=== PATIENT | female | born 1965 | race African-American/Black ===

== ENCOUNTER → 2019-05-23 10:41 | Outpatient (CLI) | payer MEDICARE, MEDICAID, OTHER, SELFPAY ==
--- NOTE | 2019-05-23 10:49 | DI.CT.S_ITS ---
PROCEDURE: CT ABDOMEN WO/W CON INDICATIONS: Disorder of kidney and ureter, unspecified TECHNIQUE: Optional 5 mm thick noncontrast images acquired from the diaphragm to the iliac crests. After the administration of intravenous contrast, 5 mm thick images again acquired from the diaphragm to the iliac crests in the arterial and urographic phases. 5 mm thick coronal and sagittal reformats were then acquired. For radiation dose reduction, the following was used: automated exposure control, adjustment of mA and/or kV according to patient size. COMPARISON: Outside Facility, RG, CT ABDOMEN/PELVIS W/WO CONTRAST, 01/11/2019, 8:37. Outside Facility, RG, CT ABDOMEN/PELVIS WITH CONTRAST, 12/09/2018, 8:40. FINDINGS: Image quality: Excellent. Lung bases: Lung bases are clear. Heart size is normal. Genitourinary: The kidneys are atrophied bilaterally. There is a nonobstructing 3 mm lower pole left intrarenal calcification. There is a punctate calcification within the posterior right upper pole renal parenchyma. Multiple small cortical and medullary cysts are present bilaterally, the largest in the right lower pole measures about 1.7 cm. The largest simple cyst arises from the anterolateral left upper pole measuring 2.6 cm. There is an exophytic rounded complex left upper pole renal mass measuring 6.8 x 6.7 x 6.5 cm, stable size compared to the most remote prior study. Precontrast Hounsfield units are 26. Arterial phase enhanced Hounsfield units are 33 and delayed phase Hounsfield units are 35. There is trace defined peripheral and thin septal calcification internally. There is a small coarse internal calcification. Other solid organs: The scattered splenic and hepatic calcifications. Small, dependently layering calcified gallstones. Coarse calcifications in the expected location of the cystic duct, but no gallbladder distention or wall thickening. No adrenal nodules. Normal pancreas. Peritoneum and bowel: Unenhanced bowel loops are normal in wall thickness and caliber. Small descending colon diverticula are present. No free fluid or air. Nodes and vessels: No retroperitoneal or mesenteric adenopathy by size criteria. Aorta and inferior vena cava are normal in caliber. Bones: No suspicious bony lesions. No vertebral body compression fractures. Miscellaneous: No ventral hernias. IMPRESSION: 1. 6.8 cm exophytic left upper pole mildly complex cystic lesion without significant enhancement and occasional thin, linear septal calcifications. 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 This has been stable for 6 months and now annual followup for 5 years is recommended. 2. 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 3. Nonobstructing left lower pole intrarenal calcification. 4. Cholelithiasis. 5. Hepatic and splenic granulomas. Dictated by: Stefania Goncalves M.D. on 06/02/2019 at 18:09 Approved by: Stefania Goncalves M.D. on 06/02/2019 at 18:28
== END ==
PROVIDERS: PCP Family Medicine; Visit Provider Urology
DX: N28.9 Disorder of kidney and ureter, unspecified (principal); N20.0 Calculus of kidney; N28.1 Cyst of kidney, acquired; K57.30 Diverticulosis of large intestine without perforation or abscess without bleeding; K80.20 Calculus of gallbladder without cholecystitis without obstruction; N26.1 Atrophy of kidney (terminal); D73.89 Other diseases of spleen; K76.9 Liver disease, unspecified; Z87.442 Personal history of urinary calculi
CPT/HCPCS: 74170; Q9967

== ENCOUNTER → 2019-09-19 09:35 | Outpatient (CLI) | payer MEDICARE, MEDICAID, OTHER, SELFPAY ==
--- NOTE | 2019-09-19 09:44 | DI.CT.S_ITS ---
PROCEDURE: CT ABDOMEN WO/W CON INDICATIONS: DISORDER OF KIDNEY AND URETER TECHNIQUE: Optional 5 mm thick noncontrast images acquired from the diaphragm to the iliac crests. After the administration of intravenous contrast, 5 mm thick images again acquired from the diaphragm to the iliac crests in the arterial and urographic phases. 5 mm thick coronal and sagittal reformats were then acquired. For radiation dose reduction, the following was used: automated exposure control, adjustment of mA and/or kV according to patient size. COMPARISON: [facility], CT, CT ABDOMEN WO/W CON, 05/23/2019, 11:03. FINDINGS: Image quality: Excellent. Lung bases: Lung bases are clear. Heart size is normal. Genitourinary: Bilateral kidneys are atrophic in size. Tiny 2 mm nonobstructing bilateral renal calculi are again seen. Again noted are multiple small cortical and medullary cysts in bilateral kidneys and measures up to 1.5 cm in size in lower pole of right kidney and up to 2.6 cm in upper pole of left kidney not significantly changed from previous study. Patient's known 6.8 x 6.7 x 6.5 cm exophytic complex cystic structure in upper pole of left kidney remains unchanged in size. A precontrast Hounsfield unit measures 28 on the current study. Arterial enhanced phase density measures 31 Hounsfield unit. Delayed phase measures 37 Hounsfield unit in density. This is overall not significantly changed from previous study. Peripheral and thin septal calcifications are again seen. Small coarse internal calcification is also noted and unchanged. Other solid organs: Liver is normal in size. Scattered liver parenchymal calcifications are again seen. Gallbladder contains numerous calcified gallstones unchanged from prior study. Biliary system is non dilated. Coarse calcifications in the expected location of the cystic duct are again seen. Pancreas enhances normally. Spleen is normal in size and enhancement. Numerous splenic parenchymal calcifications are again noted. No adrenal nodules. Peritoneum and bowel: Unenhanced bowel loops are normal in wall thickness and caliber. No free fluid or air. Nodes and vessels: No retroperitoneal or mesenteric adenopathy by size criteria. Aorta and inferior vena cava are normal in caliber. Bones: No suspicious bony lesions. No vertebral body compression fractures. Miscellaneous: No ventral hernias. IMPRESSION: 1. 6.8 cm exophytic left upper pole mildly complex cystic lesion remains unchanged in size and appearance with similar enhancement pattern suggestive of a Bosniak 2F lesion. Continued annual followup for 5 years is recommended. 2. Atrophic appearing bilateral kidneys with simple renal cysts and tiny nonobstructing renal calcifications unchanged from prior study. 3. Cholelithiasis, no CT evidence of acute cholecystitis. 4. Stable appearing hepatic and splenic adenomas. 5. No acute inflammatory process is seen in abdomen. Dictated by: Shiva Magana M.D. on 09/19/2019 at 10:37 Approved by: Shiva Magana M.D. on 09/19/2019 at 10:53
[2019-09-19 10:12] LABS: BUN Creatinine Ratio 4.4 (6-22); Blood Urea Nitrogen 53 mg/dL (7-17); Estimated Glomerular Filt Rate 3.3 mL/min (>60)
== END ==
PROVIDERS: PCP Family Medicine; Referring Provider Urology; Visit Provider Urology
DX: N28.9 Disorder of kidney and ureter, unspecified (principal); N28.1 Cyst of kidney, acquired; K80.20 Calculus of gallbladder without cholecystitis without obstruction; D13.9 Benign neoplasm of ill-defined sites within the digestive system; D13.4 Benign neoplasm of liver
CPT/HCPCS: 36415; 74170; 82565; 84520; Q9967